=== PATIENT | female | born 2000 | race Asian ===

== ENCOUNTER 2025-01-17 15:19 | Emergency (ER) | payer OTHER ==
[2025-01-17] MEDS ORDERED: PRENTAB53 PO (15:39)
[2025-01-17 19:06] VITALS: BP 125/65; TEMP 98.9; O2SAT 100
== END 2025-01-17 20:44 | disposition home or self-care (01) ==
LOC: M ED 15:19 → EDBD 15:19 → M ED 20:44
DX: M54.2 Cervicalgia (principal); Z69.11 Encounter for mental health services for victim of spousal or partner abuse; Z3A.15 15 weeks gestation of pregnancy; Z79.810 Long term (current) use of selective estrogen receptor modulators (SERMs)